=== PATIENT | female | born 1975 | race Caucasian/White ===

== ENCOUNTER 2020-04-18 12:00 | Outpatient (RCR) | payer OTHER, SELFPAY ==
--- NOTE | 2019-12-27 14:24 | HP.PTEVAL_ITS ---
Patient's Visit Information HUMBLE QUINTEROS is a 44 year old F referred to Physical Therapy by Fidencio Smallwood with a diagnosis of L achilles tendon repair. Date of Evaluation: 12/13/19 Physical Therapist: Gonzalo Clark DPT - Visit Plan Frequency: 2x /Week Duration: 6 Weeks Plan: Start with ROM, strengthening in [place]. 4 weeks in boot, progress to walking without boot at 8weeks. Cont. to assess edema. May use vaso to address this. - Subjective Pt presented for eval this date 8 wks post L achilles tendon repair. Pt states she was running on a treadmill in March and started to push through pain and finish her workout and ended up tearing her achilles. States she had a history of microtears in her achilles. 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 Prior to injury she liked to run and hike often. Wants to get back to those activities when able. Pt reports discomfort and eventually pain when moving her ankle but it stops when resting. She takes Advil for pain as needed. Return to doctor Dec 27. - Pain L calc Pain Intensity (Out of 10): 0 Pain Intensity Range: 0, 3 Comment: Hurts most after moving her ankle for some time. - Objective POSTURE: WNL. PALPATION: Tenderness noted around L achilles tendon/calcaneous. ROM: L ankle: dorsi 4 deg, plantar 38 deg, inv 34 deg, ever 12 deg. Pulling felt w/ ankle mvmnt, but pt states it is not painful. MMT: 5/5 throughout, but L ankle is weaker compared to R. NEURO: Dec sensation to light touch noted in LLE from mid-calf down to toes. GAIT: Not assessed due to being in boot for ambulation. tolerates walking in boot without increase in symptoms. EDEMA: Increased edema noted around L ankle. - Goals Goal 1:: LTG: Pt to be I w/ HEP. Goal Time Frame: 4-6 Weeks Goal 2:: LTG: Pt will experience no inc in pain w/ ankle movement. Goal Time Frame: 4-6 Weeks Goal 3:: STG: Pt will be able to ambulate w/out boot on LLE. Goal Time Frame: 2-4 Weeks Goal 4:: LTG: Pt will display L ankle strength within 10% of R ankle utilizing dynamometer. Goal Time Frame: 4-6 Weeks Goal 5:: LTG: Pt will display inc L ankle ROM to equal R ankle. Goal Time Frame: 4-6 Weeks - Rehabilitation Potential Physical Therapy Diagnosis: Dec L ankle ROM, dec L ankle strength, pain requiring PT intervention to improve overall functional status, mobility, and return to normal running/hiking activities Rehabilitation Potential: Good - Anticipated Interventions Patient/Client Instruction: Educate patient on: Condition, Plan of Care, Risk Factors, Benefits of Fitness Program For the Purpose of:: To reduce risk of recurrence, To improve self management, To prevent re-injury Therapeutic Exercise to Include: Strength training, Endurance training, Balance training, Flexibilty training, Gait and locomotor training, Active ROM For the Purpose of:: To decrease pain, To increase ROM, To improve muscle performance and motor function, To increase tolerance to activity/condition/position, To improve gait and locomotor functions, To increase flexibility/ROM, To improve endurance, To improve balance Functional Training to Include: Gait training For the Purpose of:: To improve gait and locomotor functions Ultrasound (thermal/non thermal): Yes For the Purpose of:: To decrease pain, To improve nutrient delivery to tissue Thank you for the opportunity to evaluate your patient. For Medicare and Medicare HMO plans, please review the plan of care and approve it. It will need to be FAXED BACK to us at [phone] for Medicare purposes. For Medicare only, by signing this I certify the plan of care. Please let me know if there are questions or concerns regarding this plan of care. Physician Signature: Date :
--- NOTE | 2020-03-21 18:14 | HP.PTREVAL ---
Fidencio Smallwood, It has been my pleasure to treat HUMBLE QUINTEROS over the last 24 visits for L achilles tendon repair. Please see the progress note below for an update on the physical therapy plan of care! Subjective: Pt. reports overall doing well. Pt. reports being 50% better overall. pt. is stillhaving trouble with walking with a shoe on so has resulted to wearig crocs only. She is working on slowly increasing her walking as tolerated. Objective/Function: Pt. is doing better overall. Her heel is still very tender and is having increased pain with walking with a shoe on. ankle ROM: PF 52deg, DF 14deg, INV 20deg, EVR 20deg. Pt. has 4+/5 PF strength rest is 5/5. Pt. still has a slight antalig pattern with gait, but is progressing. Pt. is most conserned about not being able to walk with a shoe on. She is progressing well with the rest of her rehab. Pt. to continue to work on ankle strengthening/stability and slowly progress activity as tolerated. Plan Plan: Cont to progress stregth exs and ankle stabilization. Goals Goal 1:: LTG: Pt to be I w/ HEP. Goal Time Frame: 4-6 Weeks Goal Progress: Goal Met Goal 2:: LTG: Pt will experience no inc in pain w/ ankle movement. Goal Time Frame: 4-6 Weeks Goal Progress: Goal Met Goal 3:: STG: Pt will be able to ambulate w/out boot on LLE. Goal Time Frame: 2-4 Weeks Goal Progress: Goal Met Goal 4:: LTG: Pt. to have 5/5 strength of ankle DF without increase in symptoms. Goal Time Frame: 4-6 Weeks Goal Progress: Progressing Goal 5:: LTG: Pt. to complete single leg heel lift withotu increase in symptoms. Goal Time Frame: 4-6 Weeks Goal Progress: Progressing Goal 6:: LTG: pt. to ambulate with shoe on without increase in symptoms. Goal Time Frame: 4-6 Weeks Goal Progress: Progressing Anticipated Interventions Patient/Client Instruction: Educate patient on: Condition, Plan of Care, Risk Factors, Benefits of Fitness Program For the Purpose of:: To reduce risk of recurrence, To improve self management, To prevent re-injury Therapeutic Exercise to Include: Strength training, Endurance training, Balance training, Flexibilty training, Gait and locomotor training, Active ROM For the Purpose of:: To decrease pain, To increase ROM, To improve muscle performance and motor function, To increase tolerance to activity/condition/position, To improve gait and locomotor functions, To increase flexibility/ROM, To improve endurance, To improve balance Functional Training to Include: Gait training For the Purpose of:: To improve gait and locomotor functions Ultrasound (thermal/non thermal): Yes For the Purpose of:: To decrease pain, To improve nutrient delivery to tissue Please do not hesitate to contact me at [phone] by phone or if you have questions or concerns regarding this new plan of care! Sincerely, KENYA RodríguezT
== END 2020-04-18 19:00 | disposition home or self-care (01) ==
LOC: PT 12:00
PROVIDERS: Referring Provider Podiatrist
DX: Z51.89 Encounter for other specified aftercare (principal)
CPT/HCPCS: 97016; 97035; 97110; 97140; 97161; 97164

== ENCOUNTER → 2020-09-20 13:53 | Outpatient (CLI) | payer OTHER, SELFPAY ==
--- NOTE | 2020-09-20 13:57 | US_ITS ---
STUDY: ULTRASOUND OF THE FEMALE PELVIS - COMPLETE REASON FOR EXAM: Female, 45 years old. UTERINE MASS LMP: 08/24/2020 TECHNIQUE: Transabdominal and Transvaginal TECHNICAL QUALITY: Adequate. COMPARISON: None. FINDINGS: The uterus is anteverted and is in a midline position. The uterus measures 16.0 x 10.2 x 8.8 cm. Normal uterine cervix. The endometrium measures 6 mm in thickness, and is hyperechoic. There is no demonstrated endometrial mass. There are several heterogeneous hypoechoic masses throughout the uterus consistent with multiple uterine fibroids. There is a 7.5 cm mass in the fundus the uterus consistent with an intramural fibroid. There is a 6 cm hypoechoic mass within the anterior fundus the uterus consistent with a subserosal fibroid. I.U.D. - The patient does not have an I.U.D. The right ovary is visualized. The right ovary measures 7.6 x 4.4 x 4.7 cm. There is a 6.0 cm oval anechoic mass with increased transmission the right ovary consistent with a physiologic cyst, par ovarian cyst, or cystadenoma. Follow-up ultrasound is recommended in one year. There is no visualized right adnexal mass or complex lesion. There is normal arterial and normal venous vascularity. The left ovary is non-visualized.. There is no fluid in the cul-de-sac. The pre void volume of the bladder was ml. The post void volume of the bladder was ml. Polycystic ovary disease: No. US/Pelvic (Non ) IMPRESSION: 1. Enlarged fibroid uterus. 2. 6.0 cm right ovarian physiologic cyst, par ovarian cyst, or cystadenoma. Follow-up ultrasound is recommended in one year. Electronically Signed: Deuce Juarez MD at 9:17 EDT Tel , Service support ,
--- NOTE | 2020-09-20 13:58 | US_ITS ---
Refer to pelvic ultrasound Electronically Signed: Deuce Juarez MD at 9:17 EDT Tel , Service support , US/Transvaginal Non-
== END ==
PROVIDERS: PCP Family Medicine; Referring Provider Family Medicine; Visit Provider Family Medicine
DX: N85.8 Other specified noninflammatory disorders of uterus (principal)
CPT/HCPCS: 76830; 76856

== ENCOUNTER 2020-11-11 20:23 | Emergency (ER) | payer OTHER, SELFPAY ==
[2020-11-11 20:24] VITALS: BP 188/90; PULSE 116; RESP 16; TEMP 36.9; O2SAT 95; BMI 31.9
[2020-11-11 20:37] LABS: Mucous, Urine 0 SEEN /hpf (<or=2+); Red Blood Cells-Urine 0 SEEN /hpf (0-5); White Blood Cells 0 SEEN /hpf (0-5)
[2020-11-11 20:39] LABS: Color, Urine Yellow (Yellow); Glucose, Dipstick Normal (Normal); Ketone-Dipstick 5 mg/dl (Negative); Leukocyte Esterase-Dipstick Negative /ul (Negative); Nitrite-Dipstick Negative (Negative); Occult Blood-Urine 10 /ul (Negative); Protein-Dipstick Negative (Negative); Specific Gravity, Urine 1.025 (1.002-1.030); Urine Bilirubin Dipstick Negative (Negative); Urine Clarity Clear (Clear); Urine Urobilinogen Normal (Normal)
[2020-11-11 20:46] LABS: Bacteria RARE /hpf (None Seen); Squamous Epithelial Cells - UA 0-5 SEEN /hpf (5-10)
--- NOTE | 2020-11-11 21:14 | CT_ITS ---
HISTORY: abdominal pain EXAMINATION: CT Abdomen And Pelvis W/ Contrast Injection TECHNIQUE: Helically acquired images were obtained of the abdomen and pelvis following IV contrast. A radiation dose optimization technique was used for this scan. IV Contrast dosage and agent: 100mL [id number]-370 Oral contrast: None. COMPARISON: Pelvic ultrasound 09/20/20 FINDINGS: LOWER CHEST: Lung bases are clear. No cardiomegaly or pericardial effusion. LIVER: Scattered hepatic cysts with smaller low attenuation lesions which cannot be well characterized, likely small cysts or hemangiomas. No focal mass. GALLBLADDER AND BILIARY TREE: No calcified gallstones. No gallbladder distension or wall edema. No intra- or extrahepatic biliary ductal dilation. PANCREAS: No focal cystic or solid mass. SPLEEN: Normal size without focal cystic or solid mass. ADRENAL GLANDS: No nodules. KIDNEYS AND URETERS: Normal renal size and position. No hydronephrosis. PERITONEUM: No ascites or free air. BOWEL: Normal appendix. No stomach or bowel distension. No focal inflammatory bowel wall changes. LYMPH NODES: No enlarged mesenteric or retroperitoneal lymph nodes. VESSELS: Aorta is non-dilated. URINARY BLADDER: Unremarkable. REPRODUCTIVE ORGANS: Large, heterogenous and lobulated uterus consistent with fibroid uterus. 5.4 cm right ovarian cyst with mild adjacent stranding. 4.5 cm left ovarian cyst. Tampon in the vagina. ABDOMINAL WALL: No discrete abdominal or pelvic wall hernia. BONES: No acute or aggressive abnormality. CT/Abdomen/Pelvis W IV Cont ONLY IMPRESSION: 5.4 cm right ovarian cyst with adjacent stranding, possible infected or leaking cyst. 4.5 cm left ovarian cyst. Individualized dose optimization techniques were used for this CT. at 0514 Reported and signed by: Jorge Allen MD Electronically Signed: Jorge Allen MD at 22:44 EDT Tel , Service support ,
--- NOTE | 2020-11-11 21:16 | EDS_ITS ---
HPI History of Present Illness Chief Complaint: Abd Pain Informant: patient Narrative Narrative: 45-year-old female presents to the emergency department for abdominal pain. Patient tells me that she scheduled for hysterectomy later this week. She states that she has a ovarian cyst on the right as well as uterine fibroids. She tells me that she has developed a sharp pain just above her umbilicus. It does not radiate. No vomiting. No change in bowel habits. No urinary symptoms. No fevers. She states that she is concerned about this pain because it seems different than her normal pain that she has been experiencing. [facility] Medical History Alcohol use History of echocardiogram History of irregular heartbeat Migraine headache Non-smoker Wears glasses Home Medications NK 11/11/20 [History Last Taken Unknown] Allergy/AdvReac Type Severity Reaction Status Date / Time acetaminophen Allergy Angioedema Verified 11/11/20 20:26 ibuprofen Allergy Angioedema Verified 11/11/20 20:26 Surgical History Hx of Achilles tendon repair Hx of arthroscopy of right knee Hx of knee surgery Social History (Updated 11/11/20 @ 21:[address] Carlos Alvarado DO) Smoking Status: Never smoker substance use type: does not use ROS ROS ED Constitutional Constitutional ED: Denies chills or weight loss Eyes Eyes: Denies change in vision or diplopia ENT ENT ED: Denies ear pain, rhinorrhea or sore throat Cardiovascular Cardiovascular: Denies chest pain, orthopnea, palpitations or racing heartbeat Respiratory/Chest Respiratory/Chest: Denies cough, dyspnea or orthopnea Gastrointestinal Gastrointestinal: Reports abdominal pain; Denies diarrhea, nausea or vomiting Genitourinary Genitourinary ED: Denies dysuria, hematuria or urinary frequency Musculoskeletal Musculoskeletal: Denies arthralgias or myalgias Integumentary Denies abscess or rash Neurologic Neurologic: Denies headache(s) or weakness Psychiatric Psychiatric: Denies anxiety, depression, suicidal ideation or suicidal thoughts Endocrine Endocrinology: Denies polydipsia, polyphagia or polyuria Allergic/Immunologic Allergic/Immunologic ED: Denies mouth swelling, tongue swelling or urticaria EXAM Physical Exam Const Vital Signs: 11/11/20 20:24 Temperature 98.4 F Temperature Source Temporal Pulse Rate 116 H Respiratory Rate 16 Blood Pressure 188/90 H Blood Pressure Mean 122 Pulse Ox 95 Oxygen Delivery Method Room Air Positive well nourished and well developed General Appearance ED: well developed HEENT Reports normocephalic, head/scalp atraumatic and moist mucous membranes Eyes PERRL and EOMs intact bilaterally Neck no lymphadenopathy, supple and no JVD Resp normal respiratory effort and clear to auscultation bilaterally Cardio regular rate, regular rhythm and no murmurs GI GI Narrative: Periumbilical tenderness to palpation as well as in the epig astrium. I would not characterize the abdomen is a surgical abdomen Palpation: soft; Negative for guarding or rebound tenderness present Back/Spine no CVA tenderness and normal ROM Extremity normal to inspection General Extremety ED: Negative for edema General Extremity: Negative for edema Neuro oriented x3 and CN's II-XII intact bilaterally Sensorium / Orientation: alert Motor Exam: strength 5/5 throughout Psych mental status grossly normal Mood & Affect: Negative for depressed or tearful Skin no rashes or lesions noted and no wounds MDM MDM MDM Narrative Medical decision making narrative: White count is nonspecifically elevated 12.1. Creatinine 1.21. Urinalysis negative. CT the pelvis demonstrated a fibrotic uterus. 5.4 cm ovarian cyst on the right. There was also a left ovarian cyst measuring 4.5 cm. Patient has been resting comfortably after some Zofran. Patient will be discharged home to follow-up with her doctors. I do not believe she is having ovarian torsion. Her pain is much higher than the pelvis. Lab Data Attestation: I reviewed the patient's lab results. Labs: Laboratory Results - last 24 hr 11/11/20 11/11/20 11/11/20 20:30 21:35 21:35 WBC 12.1 H RBC 4.72 Hgb 13.3 Hct 40.8 MCV 86.4 MCH 28.2 MCHC 32.6 RDW Std Deviation 43.0 RDW Coeff of Arron 13.6 Plt Count 218 MPV 10.6 Immature Gran % (Auto) 0.400 Neut % (Auto) 74.9 H Lymph % (Auto) 18.0 L Jefferson % (Auto) 5.8 Eos % (Auto) 0.7 Baso % (Auto) 0.2 Absolute Neuts (auto) 9.0 H Absolute Lymphs (auto) 2.17 Nucleated RBC % 0 Sodium 138 Potassium 3.8 Chloride 105 Carbon Dioxide 28.0 Anion Gap 5 BUN 17 Creatinine 1.21 H Estim Creat Clear Calc 59.23 Est GFR (MDRD) Af Amer 62 Est GFR (MDRD) Non-Af 51 L BUN/Creatinine Ratio 14.0 Glucose 100 Calcium 8.7 Total Bilirubin 0.40 AST 12 L ALT 24 Alkaline Phosphatase 84 Total Protein 7.7 Albumin 3.5 Globulin 4.2 Albumin/Globulin Ratio 0.8 L Lipase 55 L Urine Color Yellow Urine Clarity Clear Urine pH 6.0 Ur Specific [place] 1.025 Urine Protein Negative Urine Glucose (UA) Normal Urine Ketones 5 H Urine Occult Blood 10 H Urine Nitrite Negative Urine Bilirubin Negative Urine Urobilinogen Normal Ur Leukocyte Esterase Negative Urine RBC 0 SEEN Urine WBC 0 SEEN Ur Squamous Epith Cells 0-5 SEEN Urine Bacteria RARE Urine Mucus 0 SEEN Radiography Diagnostic Testing: Radiology Impression Abdomen/Pelvis CT 11/11/20 21:14 IMPRESSION: 5.4 cm right ovarian cyst with adjacent stranding, possible infected or leaking cyst. 4.5 cm left ovarian cyst. Individualized dose optimization techniques were used for this CT. at 2245 Reported and signed by: Jorge Allen MD Electronically Signed: Jorge Allen MD at 22:44 EDT Tel , Service support , Discharge Plan Triage Chief Complaint: Abd Pain ED Provider: Carlos Alvarado Dx/Rx/DC Orders Clinical Impression: Abdominal pain, acute Instructions: ED Abdominal Pain Unkn Cause Fem Prescriptions: No Action NK RF: 0 Primary Care Provider: Jeffy Rivero Referrals: Jeffy Rivero MD [Primary Care Provider] - As Needed Disposition Disposition: Home, Self Care
[2020-11-11] MEDS: Ondansetron 4 MG/2 ML Vial IV (21:35)
[2020-11-11 21:45] LABS: Absolute Lymphocyte Count 2.17 X10^3/uL (0.83-4.51); Basophil# 0.02 X10^3/uL; Basophil% 0.2 % (0-1); Eosinophil# 0.09 X10^3/uL; Eosinophils% 0.7 % (0-5); Hematocrit 40.8 % (37-47); Hemoglobin 13.3 g/dL (12.0-15.0); Lymphocyte # 2.17 X10^3/ul (0.83-4.51); Mean Corp Hgb Conc 32.6 g/dL (32-36); Mean Corpuscular Hgb 28.2 pg (27.0-32.0); Mean Corpuscular Volume 86.4 fL (81-99); Mean Platelet Vol. 10.6 fl (6.2-12.0); Monocyte% 5.8 % (0-10); NRBC Flagged by Analyzer 0 % (0-5); Neutrophil # 9.04 X10^3/uL (2.7-7.7); Neutrophil % 74.9 % (47-70); Platelet Count 218 K/mm3 (150-450); RBC Distribution Width CV 13.6 % (11.6-14.6); Red Blood Count 4.72 M/mm3 (4.2-5.4); White Blood Count 12.1 K/mm3 (4.4-11.0)
[2020-11-11 22:04] LABS: ALB/GLOB Ratio 0.8 RATIO (0.9-2.4); AST(SGOT) 12 U/L (15-37); Alanine Aminotransfer ALT/SGPT 24 U/L (13-56); Albumin, Serum 3.5 g/dL (3.2-5.0); Alkaline Phosphatase 84 U/L (45-117); Anion Gap 5 (5-15); BUN 17 mg/dL (7-18); Calcium,Total 8.7 mg/dL (8.5-10.1); Chloride 105 mmol/L (98-107); Creatinine, Serum 1.21 mg/dL (0.55-1.02); EST Glomerular Filtration Rate 51 mL/min (>60); Est Glom Filt Rate - Afr Amer 62 mL/min (>60); Estimated Creatinine Clearance 59.23 ml/min; Globulin 4.2 g/dL (2.2-4.2); Glucose 100 mg/dL (74-106); Lipase 55 U/L (73-393); Potassium 3.8 mmol/L (3.5-5.1); Protein, Total 7.7 g/dL (6.4-8.2); Sodium Level 138 mmol/L (136-145)
== END 2020-11-11 23:30 | disposition home or self-care (01) ==
PROVIDERS: Emergency Provider Emergency Medicine; PCP Family Medicine
DX: R10.9 Unspecified abdominal pain (principal); N83.201 Unspecified ovarian cyst, right side; D25.9 Leiomyoma of uterus, unspecified; N83.202 Unspecified ovarian cyst, left side
CPT/HCPCS: 74177; 80053; 81001; 83690; 85025; 96374; 99283; Q9967; A4216; J2405

== ENCOUNTER 2020-11-15 05:35 | Inpatient (IN) | payer OTHER, SELFPAY ==
[2020-11-09 12:52] LABS: Magnesium 1.9 mg/dL (1.6-2.6)
[2020-11-09 13:01] LABS: Hematocrit 39.9 % (37-47); Hemoglobin 13.2 g/dL (12.0-15.0); Mean Corp Hgb Conc 33.1 g/dL (32-36); Mean Corpuscular Hgb 27.7 pg (27.0-32.0); Mean Corpuscular Volume 83.6 fL (81-99); Mean Platelet Vol. 11.2 fl (6.2-12.0); Platelet Count 211 K/mm3 (150-450); RBC Distribution Width CV 13.7 % (11.6-14.6); Red Blood Count 4.77 M/mm3 (4.2-5.4); White Blood Count 5.6 K/mm3 (4.4-11.0)
[2020-11-15] VITALS (13 sets, daily range): BP systolic 92–149; BP diastolic 61–98; PULSE 71–102; RESP 16; TEMP 36.4–37.3; O2SAT 97–100; BMI 32.0; BMI 31.5
[2020-11-15] MEDS: Gabapentin 600 MG Tablet PO (06:25)
[2020-11-15 06:31] LABS: Internal QC Validated? YES +Cl - CLEAR BKGD; Pregnancy, Urine Negative Negative
[2020-11-15] MEDS: Lactated Ringers 1,000 ML 40 ML IV ×3 (06:43→21:13)
--- NOTE | 2020-11-15 06:51 | PCM.HP.BLA ---
History and Physical Date of Admission: 11/15/20 Surgical History and Physical Date: 11/15/2020 Name: LISA QUINTEROS Age: 45 Date of : 1975 Lisa Quinteros, a 45 year old female 0 0 0 0 0, presents for Total abdominal hysterectomy bilateral salpingectomy, possible right ovarian cystectomy, possible right oophorectomy -- Lisa presents here today for CESAR,BS, possible (R) Ovarian Cystectomy, possible (R) Oophorectomy at [facility] on 11-15-20. Fibroids and Cysts found with Scan which began Pain x 3 years. Lisa claims it started gradually and has been present Found on exam/scan. It occurs all the time. MEDICATIONS HISTORY: Patient is also takin. Botox 200 unit injection, One injection every 90 days 2. Nurtec ODT 75 mg disintegrating tablet, As Directed prn ALLERGIES: Ibuprofen, Angioedema, Acetaminophen and Angioedema Infections - Chicken pox Illnesses - Migraines Accidents - None Hospitalizations - see surgery Review of Systems: GENERAL - Denies fever, or chills SKIN - Denies skin changes EYES - Denies visual changes EARS - Denies difficulty hearing NOSE - Denies nasal congestion or bleeding MOUTH - Denies sore throat or difficulty swallowing NECK - Denies pain or swelling RESPIRATORY - Denies shortness of breath or wheezing CARDIOVASCULAR - Denies palpitations or chest pain GASTROINTESTINAL - Denies nausea, vomiting, diarrhea, constipation GENITOURINARY - Denies dysuria, frequency of urination, incontinence of urine MUSCULOSKELETAL - Denies joint or muscle pain NEUROLOGICAL - Denies localized numbness or weakness PSYCHIATRIC - Denies depression or anxiety ENDOCRINE - Denies heat or cold intolerance, weight loss or gain HEMATO-IMMUNOLOGIC - Denies excessive bleeding with cuts SOCIAL HISTORY: Alcohol Use - socially Smoking - Never Diet - no special diet Lifestyle - moderate stress lifestyle and Exercise - active Seat Belt Use - always 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 1994 Arthoscopic Surgery (R) Knee ; - 2. 2004 Microfracture Surgery (R) Knee ; - 3. 2019 (L) Achilies Tenden Replaced ; - PHYSICAL EXAM BP- 144/90 Sitting, Right arm, regular cuff Weight- 211.25314 lbs Height- 68 inch BMI:[id number] CONSTITUTIONAL - NAD, well nourished, and well developed SKIN - No rash, lesions, or ulcers HEENT - Normocephalic, PERRLA, EOMI NECK - No nodes, no nuchal rigidity and thyroid normal size and texture ABDOMEN - Without hepatosplenomegaly, distention, masses, rebound, or guarding; normal bowel sounds; no hernias EXTREMITIES - No edema or calf tenderness NEUROLOGICAL - Cranial nerves II-XII grossly intact PSYCHIATRIC - A and O to time, place, person, mood and affect External Genital Vagina - Narrow introitus Urethra/Urethral Meatus - non-tender Bladder - non-tender Vagina - vaginal grady are pink and moist without loss of rugae and no evidence of atrophy Cervix - without cervical motion tenderness and has normal size and features without evident lesions Uterus - 20cm in size. Uterus palpable to just above the umbilicus, large palpable leiomyomas x2 greater than 6 cm each Adnexa - clear without masses or tenderness ASSESSMENT/PLAN: 1. Leiomyoma Of Uterus, Unspecified Referral from [facility] Dr. Shea for pelvic pain and leiomyomas. Patient with pelvic pressure and pain for years now in the past several months getting much worse, making it difficult to eat or rest comfortably on ultrasound [facility] to have uterus 16 cm 10.2 x 8.8 cm. Fundal intramural fibroid 7.5 cm, anterior fundal subserosal fibroid 6 cm. Right ovary 7.6 x 4.7 cm 6 cm simple cyst left ovary not visualized. Exam with very narrow introitus, nulliparous, with uterine fundus 1 above umbilicus. Educated patient on findings, discussed surgical management options does not desire future fertility. Educated patient on based on size and exam will need open abdominal hysterectomy. Risk benefits alternatives discussed recovery and pain. Patient agrees to CESAR BS possible right ovarian cystectomy. 2. Encounter For Other Preprocedural Examination Pt for Total abdominal hysterectomy bilateral salpingectomy, possible right ovarian cystectomy, possible right oophorectomy. For uterine leiomyomas, right ovarian cyst Educated patient on likely to be able to low-transverse incision but possible vertical midline incision with sharee. Patient states understanding. Educated patient on wound care. Educated patient on lifting restrictions. Educated patient on pain control, will consider TAP block at time of surgery. Otherwise narcotic medication. Patient at this time and wishes to go home same day if possible
[2020-11-15 07:16] LABS: Bedside Glucose 121 mg/dL (70-110)
[2020-11-15] MEDS: Cefazolin 2 GM in 0.9% Normal Saline 100 ML IV (07:26)
--- NOTE | 2020-11-15 07:30 | HYST_PTH ---
PATIENT: HUMBLE QUINTEROS LOC: [facility] U#:[id number] AGE/SX: 45/F ROOM: [facility]315 RE11/15/[address]: Dr. Yimi Acosta MD : 1975 BED: 1 DIS: 11/17/2020 SPEC #: [id number] RECD: 11/15/20 10:43 STATUS: [place] REQ #: [id number] SHARYN: 11/15/20 07:[address]: Yimi Acosta DEPT: SURGICAL PATHOLOGY RECD BY: Jenny Dietrich ENTERED: 11/15/20 12:46 SP TYPE: HYSTERECT OTHR DR: Dr. Jeffy Rivero MD Tissues: Uterus, NOS Procedures: Surgery Specimen Level V HEADER OPERATION: ERAS, abdominal supracervical hysterectomy, bilateral salpingectomy PRE-OP DIAGNOSIS: Leiomyoma of uterus TISSUE SUBMITTED: Uterus, bilateral fallopian tubes, bilateral ovaries MICROSCOPIC DIAGNOSIS Uterus, bilateral fallopian tubes and bilateral ovaries, supracervical hysterectomy and bilateral salpingo-oophorectomy: Cervix ? proximal cervix, no pathologic diagnosis. - Benign endocervical polyp. Endometrium ? proliferative endometrium. - Benign endometrial polyp. Myometrium ? leiomyomas (largest measuring 8.5 cm in greatest dimension). - Focal adenomyosis. Bilateral fallopian tubes - no pathologic diagnosis. Smaller ovary ? physiologic follicular cysts. - Hemorrhagic endometriotic cyst (3 cm in greatest dimension). Larger ovary ? extensive endometriosis (largest cyst measures 4 cm in greatest dimension). CARRI:wanda 11/16/2020 MICROSCOPIC DESCRIPTION Slides are reviewed. GROSS DESCRIPTION Received in fixative is one container labeled with the patient's name and designated uterus, bilateral fallopian tubes and bilateral ovaries. The specimen consists of a supracervical hysterectomy specimen consisting of a portion of uterus with proximal portion of cervix, detached nodular masses, detached bilateral fallopian tubes and detached bilateral ovaries. The uterus with cervix and detached nodule masses weigh in aggregate 654 gm. The uterus with portion of proximal cervix measures 12 x 11 x 6 cm. The serosal surface is ragged. The specimen shows focal area of defect consistent with site of detached nodular masses. The ectocervix is not present in the specimen. The proximal portion of endocervical canal measures 2 cm in length. The cervical canal shows a polyp measuring 1 x 0.5 x 0.2 cm. The endocervical wall underneath the polyp is not indurated. The rest of the endocervical mucosa is romero, glistening and unremarkable. A second detached polyp is also noted measuring 1 x 1 x 0.2 cm. The triangular endometrial cavity measures 5 cm in length and up to 3 cm in width. The endometrium is romero, glistening without any mass lesion and measures 0.1 cm in thickness. Sections through the uterine wall reveal multiple nodular masses. The largest mass measures 3 cm in greatest dimension. Twelve detached nodular masses are also present in the container measuring 1 to 8.5 cm in greatest dimension. Sections of these masses reveal romero whorled cut surfaces without areas of hemorrhage, necrosis or cystic degeneration. The uterine wall measures up to 4 cm in thickness. The fallopian tubes are not identified as right or left and measures 4 cm in length and 0.6 cm in diameter and 4 cm in length and 1 cm in diameter. The fimbrial ends are identified. Sections reveal unremarkable cut surfaces. The ovaries are also not identified as right or left. The soft to cystic one ovary measures 4.5 x 3 x 2.5 cm. Sections reveal one hemorrhagic cyst measuring 3 cm in greatest dimension. Another cyst is also noted filled with clear fluid measuring 1 cm in greatest dimension. The second ovary measures 7 x 4.5 x 3.5 cm. Sections reveal a large, hemorrhagic cyst measuring 4 cm in greatest dimension. Several smaller hemorrhagic cysts are also noted. A piece of adipose tissue is also noted in the container measuring 3 x 1 x 0.2 cm. Metal Drawer sections are submitted in 18 cassettes as follows: 1 & 2 - cervix, 3-6 - uterine wall including endometrium, 7 - nodular masses in the piece of uterus, 8-10 - detached nodular masses (8 - largest nodular mass, 9 - second largest nodular mass, 10 - third largest nodular mass), 11 & 12 - bilateral fallopian tubes with each cassette one fallopian tube, 13 & 14 - smaller ovary, 15-17 - larger ovary, 18 - adipose tissue. / CARRI:wanda 11/15/20 TC:1 CPT: 33140
[2020-11-15] MEDS: BUPIVACAINE LIPOSOME/PF 20 ML VIAL OPERA.SITE (09:55)
--- NOTE | 2020-11-15 10:48 | PCM.OPRPT ---
Report of Operation Date of Procedure: 11/15/20 Pre-Operative Diagnosis: Leiomyomas, ovarian cysts Post-Operative Diagnosis: Leiomyomas, endometriomas bilaterally, large amount of colouterine adhesions Surgery/Procedure Performed:: Abdominal supracervical hysterectomy bilateral salpingo-oophorectomy, lysis of adhesions Description of Surgical Findings:: Surgeon: Yimi Acosta MD Anesthesia: General EBL: 800 cc IV fluids: 2000 cc Urine output: 210 cc Complications: None Specimen: Uterus, bilateral fallopian tubes, bilateral ovaries Findings: Uterus with multiple leiomyomas. Large fundal leiomyoma, anterior and posterior fibroid. Multiple right broad ligament fibroids. Right ovarian endometrioma 4 to 5 cm in size, right ovary was adhesed to the colon And posterior portion of the uterus, after lysis of colouteruine adhesions hemostasis could only be achieved without right oophorectomy. Left ovary entirely adhesed to posterior portion of the uterus, making it surgically necessary for left oophorectomy. Large amount of colouterine adhesions from the midportion of the uterus down through the cervix. Dr. Mckee was called in for evaluation and lysed adhesions freeing up the majority of the uterus. But could not free colon From cervical portion of the uterus leading to supracervical hysterectomy. 10 cc of FloSeal was placed over surgical sites. Bilateral fallopian tubes within normal limits. Intraincisional Exparel 20 cc was placed prior to incision closure. Consent: Patient with pelvic pain found to have leiomyomas and ovarian cyst in need of total abdominal hysterectomy bilateral salpingectomy possible oophorectomy. Patient understands risk of the procedure include but are not limited to visceral or vascular injury, prolonged hospitalization, blood loss need for transfusion, reoperation. Patient stated understanding and wished to proceed. All questions were answered and consent was signed. Procedure: Patient was brought back to the OR where general anesthesia found to be adequate. 2 g of Ancef were given for infection prophylaxis. Patient was prepared and draped in a supine position. Maylard low transverse skin incision was made at the skin with a scalpel, the incision was carried down to the fascia with a scalpel. The fascia was excised and extended laterally. Eliane retractor was used to visualize the right inferior epigastrics which were clamped cut and suture-ligated. In a similar fashion using a Eliane the left inferior epigastric was visualized clamped cut and suture-ligated. Good hemostasis was noted. Rectus muscle was undermined and transected. Peritoneum was tented and entered sharply. Peritoneum was extended laterally. Leoncio retractor was inserted and above findings were noted. Left round ligament was isolated cut and cauterized. Anterior and posterior portions of the broad ligament were dissected. Left ureter was palpated and noted to be out of the operative field. Bladder flap was developed. As noted above left fallopian tube and ovary adhesed to posterior uterus. Uterine vessels could not be skeletonized and dissected laterally without clamping and transfixation of the left IP ligament. Left IP ligament was dissected clamped cut and transfixed. Good hemostasis noted. Left uterine vessels were now skeletonized, clamped cut and transfixed with Jimi transfixation suture. Right round ligament was cut and cauterized anterior and posterior portions of broad ligament were dissected. Right ureter was palpated and out of the operative field. Bladder flap was developed. As noted above right ovary, posterior portion of uterus, and colon were all adhesed together closing the posterior cul-de-sac. As noted above Dr. Mckee was consulted for evaluation, upon evaluation he lysed colouterine adhesions. As noted above after lysis of colorectal adhesions hemostasis can only be achieved by transfixing the right IP ligament which was performed with [place] transfixation stitch. Good hemostasis was noted. Right broad ligament with multiple fibroids that were carefully dissected and removed. Right uterine vessel was skeletonized clamped cut and transfixed with Jimi transfixation stitch. Colorectal adhesions could not be lysed beyond the level of the cervix, supracervical hysterectomy was performed using a Bovie. Good hemostasis was noted. Posterior cervical peritoneum was imbricated over cervical stump. Good hemostasis noted. 10 cc of FloSeal was placed over the entire operative field. Good hemostasis was noted. 20 cc of Exparel were placed at the lateral portions of the fascial incision. Fascia was closed with PDS. Skin was closed in a subcuticular fashion. All counts correct x2. Patient tolerated procedure well was brought to recovery in stable condition. skilled nursing facility counselor: Gypsy Donahue
[2020-11-15] MEDS: Docusate Sodium 100 MG Capsule PO (20:53)
[2020-11-15] MEDS: oxyCODONE 5 MG Tablet PO (23:40)
[2020-11-16] VITALS (7 sets, daily range): BP systolic 115–148; BP diastolic 90–97; PULSE 83–99; RESP 16–18; TEMP 36.7–37.2; O2SAT 97–100
[2020-11-16] MEDS: Ondansetron ODT 4 MG Tablet PO (05:59)
--- NOTE | 2020-11-16 06:14 | NURSING ---
pt stood at the bedside became nauseated, dizzy and her ears were ringing. pt returned to the bed and the symptoms went away.
[2020-11-16 06:55] LABS: Hematocrit 35.7 % (37-47); Hemoglobin 11.8 g/dL (12.0-15.0); Mean Corp Hgb Conc 33.1 g/dL (32-36); Mean Corpuscular Hgb 28.2 pg (27.0-32.0); Mean Corpuscular Volume 85.2 fL (81-99); Mean Platelet Vol. 10.7 fl (6.2-12.0); Platelet Count 275 K/mm3 (150-450); RBC Distribution Width CV 13.7 % (11.6-14.6); RBC Distribution Width SD 42.6 fl (35.1-43.9); Red Blood Count 4.19 M/mm3 (4.2-5.4); White Blood Count 12.8 K/mm3 (4.4-11.0)
--- NOTE | 2020-11-16 07:37 | PN.OBGYN_ITS ---
Subjective Subjective Patient overall did well overnight. Ambulated. Recently's morning did have episode of dizziness x1, feels much improved. Ambulated without issues prior. Still with incisional pain when changing position. Objective Data Objective Data Vital Signs: Vital Signs Temp Pulse Resp BP Pulse Ox 98.3 F 97 18 115/91 H 98 11/16/20 05:58 11/16/20 05:58 11/16/20 05:58 11/16/20 05:58 11/16/20 05:58 Oxygen Flow Rate (L/min) 6 Oxygen Delivery Method Room Air Weight: 207 lb 3.752 oz Body Mass Index (BMI) 31.5 Intake & Output: Intake and Output for Last 24 Hours 11/14/20 11/15/20 11/16/20 23:59 23:59 23:59 Intake Total 5954.17 / 5954.17 200 / 200 Output Total 3420 / 3420 500 / 500 Balance 2534.17 / 2534.17 -300 / -300 Lab / Micro Data Result Diagrams: 11/16/20 06:03 Labs: Laboratory Results - last 24 hr 11/16/20 06:03: WBC 12.8 H, RBC 4.19 L, Hgb 11.8 L, Hct 35.7 L, MCV 85.2, MCH 28.2, MCHC 33.1, RDW Std Deviation 42.6, RDW Coeff of Arron 13.7, Plt Count 275, MPV 10.7 Micro: Microbiology 11/14/20 13:20 Interface Orders SARS-CoV-2 Antigen (Rapid) - Final Physical Exam Const alert, oriented x3, no apparent distress, average body habitus, healthy appearing and well nourished HEENT normocephalic and moist oral mucous membranes Head and Scalp: atraumatic Neck full ROM Resp normal respiratory effort, no retractions and no use of accessory muscles GI normal to inspection, nondistended, normoactive bowel sounds GI Narrative: Bandage clean dry and intact Extremity normal to inspection, full ROM, no clubbing, cyanosis or edema and no calf tenderness Skin no rashes or lesions noted Psych mental status grossly normal, affect normal, speech normal and activity/motor behavior normal Assessment & Plan (1) Acute postoperative pain: PLAN: Postoperative day 1 status post supracervical abdominal hysterectomy bilateral salpingo-oophorectomy and lysis of colorectal adhesions. Patient with Tylenol and ibuprofen allergy, currently pain controlled with oxycodone. Educated patient on oxycodone and long-term risks. Labs stable, will remove Basilio catheter later today. If voiding, ambulating, tolerating regular diet can discharge home today. Likely home tomorrow. With bilateral salpingo- oophorectomy Climara patch to be placed.
[2020-11-16] MEDS: HYDROmorphone 0.5 MG/0.5 ML SYRINGE IV (09:12)
[2020-11-16] MEDS: 0.9% Saline Lock 10 ML Syringe IV (09:12)
[2020-11-16] MEDS: Docusate Sodium 100 MG Capsule PO ×2 (09:19→21:30)
[2020-11-16] MEDS: Enoxaparin 40 MG/0.4 ML Syringe SC (09:19)
--- NOTE | 2020-11-16 11:15 | CASEMGMT ---
FIDE ARAUJO Assessment: Face to Face with pt for initial transition planning/care coordination assessment. RN CM introduced self and role at [facility], pt voices understanding and consents to assessment. Pt is A/O x4 and answers all questions appropriately at this time. Pt sitting up in chair with at bedside. Care providers, pharmacy, and demographics verified/updated. Admitting Dx: CESAR, bilat salmike, Rt cystectomy PCP:Mat Specialists: Navdeep Acosta, TRACK CAR OPERATOR; Chiqui De Luna TRAFFIC CONTROLLER CABLE at [facility] neurology department for her migraines Preferred Pharmacy: [facility] while inpt Insurance: [employer] [facility] [place] Prescription Benefit: yes LW/HPOA: Pt denies. LNOK:Josue Davidson, ; Amalia Martinez, mother Living Arrangements: Pt lives with and 2 sons in a single story house with 3 steps to enter. Pt reports being I in ADL's and denies concerns at home. Transportation: Pt drives self and denies concerns with transportation. DME/HHC/SNF: Pt denies having any DME, hx of HHC or SNF stays. Pt states no concerns with going home at time of dc. Pt states no further concerns/needs. CM to follow. Advised pt to ask CM if any further question/concerns/needs arise, voices understanding. Pt Goal: Home Plan: Home
[2020-11-16] MEDS: oxyCODONE 5 MG Tablet PO ×2 (11:41→17:45)
[2020-11-17 02:30] VITALS: BP 151/93; PULSE 108; RESP 16; TEMP 36.9; O2SAT 100
[2020-11-17] MEDS: oxyCODONE 5 MG Tablet PO (04:33)
[2020-11-17 07:53] VITALS: BP 125/89; PULSE 87; RESP 18; TEMP 36.8; O2SAT 97
[2020-11-17] MEDS: Enoxaparin 40 MG/0.4 ML Syringe SC (08:05)
[2020-11-17] MEDS: Docusate Sodium 100 MG Capsule PO (08:06)
--- NOTE | 2020-11-17 09:58 | PCM.DC.BLA ---
Discharge Summary Date of Admission: 11/15/20 Date of Discharge: 11/17/20 Summary: Patient arrived on 11/15/2020 with leiomyomas scheduled for total abdominal hysterectomy. Intraoperatively noted to have large amount of colorectal adhesions to the uterus and ovaries, because of this Dr. Mcmillan was consulted intraoperatively for lysis of colorectal adhesions and supracervical total abdominal hysterectomy and bilateral salpingo-oophorectomy needed to be performed. Patient with Tylenol and ibuprofen allergy, anaphylaxis. Otherwise hospital course with normal postoperative recovery. Basilio removed postop day 1, pain well controlled, patient ambulating, tolerating regular diet. Climara patch started. To discharge home on Climara patch, oxycodone, to take [id number] Colace. Physical Exam Const alert, oriented x3, no apparent distress, average body habitus, no limitations and healthy appearing HEENT normocephalic and moist oral mucous membranes Lymph Lymphatic: no lymphadenopathy noted Resp normal respiratory effort, normal air movement, no retractions and no use of accessory muscles GI normal to inspection, nondistended, normoactive bowel sounds GI Narrative: Bandage clean dry and intact Extremity normal to inspection, full ROM, normal capillary refill, no joint enlargement and no clubbing, cyanosis or edema Skin no rashes or lesions noted Psych mental status grossly normal, thought process normal, cooperative, affect normal and speech normal Meaningful Use Info Meaningful Use Diagnoses (Choose all that apply): None applicable Discharge Plan Admission Admit Date/Time: 11/15/20 05:35 Primary Reason for Your Visit: Hysterectomy Attending Provider: Yimi Acosta Primary Care Provider: Jeffy Rivero Discharge Orders/Prescriptions Prescriptions: New oxycodone 5 mg Tablet 5 mg PO Q4H PRN PRN (Reason: Pain Score 4-10) 5 Days Qty: 28 RF: 0 Continued Nurtec ODT 75 mg tablet,disintegrating 75 mg PRN (Reason: Migraine Headache) RF: 0 Referrals / Follow Up: Jeffy Rivero MD [Primary Care Provider] - Disposition Disposition (needs filled in before D/C Order can be placed): Home, Self Care
--- NOTE | 2020-11-17 10:02 | PCM.PN.OB ---
Subjective Subjective No overnight complaints. Pain now well controlled. Voiding spontaneously. Tolerating regular diet. Ambulating Objective Data Objective Data Vital Signs: Vital Signs Temp Pulse Resp BP Pulse Ox 98.2 F 87 18 125/89 H 97 11/17/20 07:53 11/17/20 07:53 11/17/20 07:53 11/17/20 07:53 11/17/20 07:53 Oxygen Flow Rate (L/min) 6 Oxygen Delivery Method Room Air Weight: 207 lb 3.752 oz Body Mass Index (BMI) 31.5 Intake & Output: Intake and Output for Last 24 Hours 11/15/20 11/16/20 11/17/20 23:59 23:59 23:59 Intake Total 5954.17 / 5954.17 3268 / 3268 1000 / 1000 Output Total 3420 / 3420 1050 / 1050 325 / 325 Balance 2534.17 / 2534.17 2218 / 2218 675 / 675 Lab / Micro Data Result Diagrams: 11/16/20 06:03 Micro: Microbiology 11/14/20 13:20 Interface Orders SARS-CoV-2 Antigen (Rapid) - Final Physical Exam Const alert, oriented x3, no apparent distress, average body habitus, healthy appearing and well nourished HEENT normocephalic and moist oral mucous membranes Head and Scalp: atraumatic Neck full ROM Lymph Lymphatic: no lymphadenopathy noted Resp normal respiratory effort, no retractions, no use of accessory muscles and clear to auscultation bilaterally GI normal to inspection, nondistended, normoactive bowel sounds GI Narrative: Bandage clean dry and intact Extremity normal to inspection, full ROM and no clubbing, cyanosis or edema Psych mental status grossly normal, affect normal, speech normal and activity/motor behavior normal Assessment & Plan (1) Acute postoperative pain: PLAN: Postop day 2 status post abdominal supracervical hysterectomy bilateral salpingo-oophorectomy. Patient's pain now well controlled. Ambulating with ease. Tolerating regular diet. Voiding spontaneously. Educated patient on incisional care, lifting restrictions, intercourse. Educated patient on surgical menopause and Climara patch. Educated patient on narcotic pain medication and their side effects. Okay to discharge home today.
[2020-11-17 10:26] VITALS: BP 128/86; PULSE 97; RESP 18; TEMP 37; O2SAT 95
[2020-11-17 10:48] VITALS: O2SAT 95
--- NOTE | 2020-11-23 09:13 | PCM.OPRPT ---
Problems Associated Problem List Diagnoses (1) Intra-abdominal adhesions: Report of Operation Date of Procedure: 11/15/20 Pre-Operative Diagnosis: Intra-abdominal adhesions Surgery/Procedure Performed:: Lysis of adhesions Description of Procedure: I was called into the operating room due to adhesions from the colon to the posterior uterus. These adhesions were lysed sharply. I was unable to separate the distal vagina from the colon and so I supra cervical hysterectomy was performed. The colon was intact at the end of the procedure.
== END 2020-11-17 11:20 | disposition home or self-care (01) | DRG 743 ==
LOC: ACINP 07:35 → MS3 13:16
PROVIDERS: Anesthesiology; Admitting Provider Obstetrics & Gynecology; PCP Family Medicine; Referring Provider Obstetrics & Gynecology; Visit Provider Obstetrics & Gynecology
PROC: 0UT90ZZ Resection of Uterus, Open Approach (ICD-10-PCS; CPT 58150; principal; 2020-11-15 07:10)
DX: D25.1 Intramural leiomyoma of uterus (principal); D25.2 Subserosal leiomyoma of uterus; N80.0 Endometriosis of uterus; D28.2 Benign neoplasm of uterine tubes and ligaments; K66.0 Peritoneal adhesions (postprocedural) (postinfection); N80.1 Endometriosis of ovary
CPT/HCPCS: 36415; 81025; 82962; 83735; 85027; 86850; 86900; 86901; 87426; 88307; 99251; C9803; J7120; A4216; G0463; J2405